=== PATIENT | female | born 1970 | race American Indian/Alaskan Native ===

== ENCOUNTER 2016-11-08 20:06 | Emergency (ER) | payer OTHER ==
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
--- NOTE | 2016-11-08 22:17 | XRay Report ---
FINAL REPORT EXAM: XR SHOULDER 2 LT HISTORY: LEFT SHOULDER PAIN TECHNIQUE: AP, Y, and oblique views of the left shoulder PRIORS: None. FINDINGS: There is no evidence of acute fracture or dislocation. Joint spaces are maintained and bony mineralization is normal. Soft tissues are unremarkable. IMPRESSION: No acute abnormality identified in the left shoulder.
[2016-11-08] MEDS ORDERED: TORADOL IM ONE (22:35)
[2016-11-08 23:37] VITALS: BP 153/89
== END 2016-11-08 23:45 | disposition home or self-care (01) ==
LOC: ED 20:06
DX: S16.1XXA Strain of muscle, fascia and tendon at neck level, initial encounter (principal); M25.512 Pain in left shoulder; Z88.2 Allergy status to sulfonamides; V89.2XXA Person injured in unspecified motor-vehicle accident, traffic, initial encounter; Y93.89 Activity, other specified; Y99.9 Unspecified external cause status; Y92.410 Unspecified street and highway as the place of occurrence of the external cause
CPT/HCPCS: 73030; 96372; 99283; J1885